=== PATIENT | male | born 1965 | race Hispanic/Latino ===

== ENCOUNTER 2023-03-05 09:32 | Emergency (ER) | payer MEDICARE ==
[~2023-03-05] VITALS: Ht 157.5 cm; Wt 66.7 kg
[2023-03-05] MEDS ORDERED: ASPIRIN 325MG TAB ONE (09:41)
[2023-03-05] MEDS ORDERED: NITROGLYCERIN 1GM OINT 1 INCH/1GM TD ONE ×2 (09:42→10:00)
[2023-03-05 09:48] LABS: BASOPHILS # (AUTO) 0.05 K/uL (0.00-0.20); BASOPHILS % (AUTO) 0.4 % (0.0-5.0); EOSINOPHILS # (AUTO) 0.03 K/uL (0.00-0.70); EOSINOPHILS % (AUTO) 0.3 % (0.0-8.0); HEMATOCRIT 37.3 % (42-54); IMMATURE GRANULOCYTE ABSOLUTE 0.05 K/uL (0-1); LYMPHOCYTES # (AUTO) 0.8 K/uL (1.0-4.8); LYMPHOCYTES % (AUTO) 7.1 % (21.0-51.0); MEAN CORPUSCULAR HEMOGLOBIN 32.6 pg (27.0-33.0); MEAN CORPUSCULAR HGB CONC 34.6 g/dL (32.0-36.0); MEAN CORPUSCULAR VOLUME 94.2 fL (79-99); MONOCYTES # (AUTO) 0.7 K/uL (0.1-1.0); MONOCYTES % (AUTO) 6.3 % (3.0-13.0); NEUTROPHILS % (AUTO) 85.5 % (40.0-77.0); PLATELET COUNT (AUTO) 301 K/uL (130-400); RED BLOOD CELL COUNT(AUTO) 3.96 MIL/uL (4.50-6.20); RED CELL DISTRIBUTION WIDTH 12.2 % (11.0-15.5); WHITE BLOOD COUNT (AUTO) 11.7 K/uL (4.8-10.8)
[2023-03-05] MEDS ORDERED: ASPIRIN 325MG TAB PO ONE (10:00)
[2023-03-05 10:03] LABS: CREATININE 3.7 mg/dL (0.5-1.5); POTASSIUM 3.3 mmol/L (3.5-5.1)
[2023-03-05 10:08] LABS: ALBUMIN 4.4 g/dL (3.5-5.0); BILIRUBIN,TOTAL 0.6 mg/dL (0.2-1.0); MAGNESIUM 2.2 mg/dL (1.80-2.40); TOTAL PROTEIN, SERUM 8.8 g/dL (6.0-8.3)
[2023-03-05] MEDS ORDERED: DIAZEPAM 2 MG TAB PO ONE (11:00)
[2023-03-05] MEDS ORDERED: MORPHINE 4 MG SYG IVP ONE (11:00)
[2023-03-05 14:39] VITALS: BP 160/70; PULSE 78; RESP 14; O2SAT 95
[2023-03-05] MEDS ORDERED: ACET-2079 PO (15:35)
== END 2023-03-05 15:55 | disposition home or self-care (01) ==
LOC: EDH 09:32
DX: M54.12 Radiculopathy, cervical region (principal); I12.0 Hypertensive chronic kidney disease with stage 5 chronic kidney disease or end stage renal disease; E11.22 Type 2 diabetes mellitus with diabetic chronic kidney disease; N18.6 End stage renal disease; E78.00 Pure hypercholesterolemia, unspecified; Z99.2 Dependence on renal dialysis
CPT/HCPCS: 99285; 96374; 72125; 71045; 83735; 84484 ×2; 80053; 83880; 85025; 85730; 36415; 93005; J2270

== ENCOUNTER 2023-05-29 08:42 | Emergency (ER) | payer MEDICARE ==
[~2023-05-29] VITALS: Ht 157.5 cm; Wt 64.9 kg
[~2023-05-29 08:42] MED LIST: ACET-2079 PO
[2023-05-29 08:54] VITALS: BP 180/80; PULSE 84; RESP 16; O2SAT 100
[2023-05-29 09:02] LABS: BASOPHILS # (AUTO) 0.12 K/uL (0.00-0.20); BASOPHILS % (AUTO) 1.5 % (0.0-5.0); EOSINOPHILS # (AUTO) 0.97 K/uL (0.00-0.70); HEMATOCRIT 39.8 % (42-54); IMMATURE GRANULOCYTE ABSOLUTE 0.02 K/uL (0-1); LYMPHOCYTES # (AUTO) 1.4 K/uL (1.0-4.8); LYMPHOCYTES % (AUTO) 16.9 % (21.0-51.0); MEAN CORPUSCULAR HEMOGLOBIN 31.1 pg (27.0-33.0); MEAN CORPUSCULAR HGB CONC 33.2 g/dL (32.0-36.0); MEAN CORPUSCULAR VOLUME 93.9 fL (79-99); MONOCYTES # (AUTO) 0.5 K/uL (0.1-1.0); MONOCYTES % (AUTO) 6.6 % (3.0-13.0); NEUTROPHILS # (AUTO) 5.1 K/uL (1.8-7.7); NEUTROPHILS % (AUTO) 62.8 % (40.0-77.0); PLATELET COUNT (AUTO) 235 K/uL (130-400); RED BLOOD CELL COUNT(AUTO) 4.24 MIL/uL (4.50-6.20); RED CELL DISTRIBUTION WIDTH 12.9 % (11.0-15.5); WHITE BLOOD COUNT (AUTO) 8.1 K/uL (4.8-10.8)
[2023-05-29] MEDS: METOCLOPRAMIDE 10 MG/2 ML VIAL IVP ONE (09:07)
[2023-05-29] MEDS: FAMOTIDINE 20MG VIAL IV ONE (09:07)
[2023-05-29 09:38] LABS: CREATININE 6.2 mg/dL (0.5-1.3)
[2023-05-29 09:42] LABS: ALBUMIN 4.2 g/dL (3.5-5.0); BILIRUBIN,TOTAL 0.4 mg/dL (0.2-1.0); TOTAL PROTEIN, SERUM 8.6 g/dL (6.0-8.3)
[2023-05-29] MEDS ORDERED: PANT40TA PO (09:57)
[2023-05-29] MEDS ORDERED: METO-296 PO (09:57)
== END 2023-05-29 10:02 | disposition home or self-care (01) ==
LOC: EDH 08:42
DX: K29.70 Gastritis, unspecified, without bleeding (principal); E11.9 Type 2 diabetes mellitus without complications; E78.00 Pure hypercholesterolemia, unspecified; I10 Essential (primary) hypertension
CPT/HCPCS: 99285; 96374; 96375; 84484; 80053; 83690; 85025; 36415; 74018; 93005; J3490; J2765

== ENCOUNTER → 2023-12-01 | Outpatient (CLI) | payer MEDICARE ==
[~2023-12-01] MED LIST changes: +METO-296 PO; +PANT40TA PO
== END | disposition home or self-care (01) ==
LOC: SHCH 09:17
PROVIDERS: ATTEND Student in an Organized Health Care Education/Training Program
DX: I48.91 Unspecified atrial fibrillation (principal)
CPT/HCPCS: 93306

== ENCOUNTER → 2024-01-26 | Outpatient (CLI) | payer MEDICARE ==
[2024-01-26 12:19] LABS: BILIRUBIN,TOTAL 0.7 mg/dL (0.2-1.0); CREATININE 4.4 mg/dL (0.5-1.3); POTASSIUM 4.5 mmol/L (3.5-5.1); TOTAL PROTEIN, SERUM 8.1 g/dL (6.0-8.3)
== END | disposition home or self-care (01) ==
LOC: LAB 08:55
PROVIDERS: ATTEND Student in an Organized Health Care Education/Training Program
DX: I48.91 Unspecified atrial fibrillation (principal)
CPT/HCPCS: 36415; 80053

== ENCOUNTER → 2024-03-04 | Outpatient (CLI) | payer MEDICARE ==
[2024-03-04] MEDS: REGADENOSON 0.4 MG/5 ML PF SYG IVP ONE (15:59)
--- NOTE | 2024-03-08 11:59 | HMCSR ---
APPROVED REPORT Height: 5 ft 2in Weight: 143 lbs TEST INDICATIONS Atrial Fibrillation The imaging protocol used to acquire images was Rest Tc-99m/stress Tc-99m 1 day Consent: The procedure was explained and understood by the patient. Informerd consent was witnessed Michelle García RN First, low dose rest was performed then high dose stress. RESTING DATA: The resting ekg shows: NSR Rest SPECT myocardial perfusion imaging was performed in supine position 77 minutes following the int ravenous injection of 13.4 mCi of Tc-99 Sestamibi. Time of rest injection: 08:22: Date: 03/04/2024 Time of rest imagin:39: Date: 03/04/2024 PHARMACOLOGIC STRESS: Pharmacologic stress test was performed by injecting regadenoson 0.4 mg IV push followed by the intra venous injection of 31.3 mCi of Tc-99 Sestamibi. Time of stress injection: 10:15: Date: 03/04/2024 Time of stress imagin:11: Date: 03/04/2024 Heart Rate at time of stress injection: 75 bpm. Gated Stress SPECT was performed 116 minutes after stress injection. The images were gated to evaluate regional wall motion and calculate left ventricular ejection fracti on. STRESS DETAILS Reason for Termination: Infusion complete Stress Symptoms: No chest pain or symptoms Max HR Achieved: 77 bpm % of APMHR Achieved: 48 Max Blood Pressure: 158/79 mmHg Stress ECG: NSR Study quality was good. Lung uptake was Normal. Artifact: No artifact IMPRESSION Normal pharmacologic nuclear stress test. Conclusion Normal perfusion. LVEF 53%.
== END | disposition home or self-care (01) ==
LOC: SHCH 08:02
PROVIDERS: ATTEND Student in an Organized Health Care Education/Training Program
DX: I48.91 Unspecified atrial fibrillation (principal); I11.0 Hypertensive heart disease with heart failure; I50.22 Chronic systolic (congestive) heart failure
CPT/HCPCS: 78452; 93017; J2785; A9500 ×2

== ENCOUNTER 2024-03-13 08:57 | Emergency (ER) | payer MEDICARE ==
[~2024-03-13] VITALS: Ht 157.5 cm; Wt 67.6 kg
[2024-03-13 09:43] LABS: BASOPHILS # (AUTO) 0.12 K/uL (0.00-0.20); BASOPHILS % (AUTO) 2.1 % (0.0-5.0); EOSINOPHILS # (AUTO) 0.41 K/uL (0.00-0.70); HEMATOCRIT 36.3 % (42-54); IMMATURE GRANULOCYTE ABSOLUTE 0.01 K/uL (0-1); LYMPHOCYTES # (AUTO) 0.6 K/uL (1.0-4.8); MEAN CORPUSCULAR HEMOGLOBIN 32.5 pg (27.0-33.0); MEAN CORPUSCULAR HGB CONC 33.3 g/dL (32.0-36.0); MEAN CORPUSCULAR VOLUME 97.6 fL (79-99); MONOCYTES # (AUTO) 0.4 K/uL (0.1-1.0); MONOCYTES % (AUTO) 6.9 % (3.0-13.0); NEUTROPHILS # (AUTO) 4.2 K/uL (1.8-7.7); NEUTROPHILS % (AUTO) 72.8 % (40.0-77.0); PLATELET COUNT (AUTO) 181 K/uL (130-400); RED BLOOD CELL COUNT(AUTO) 3.72 MIL/uL (4.50-6.20); RED CELL DISTRIBUTION WIDTH 12.4 % (11.0-15.5); WHITE BLOOD COUNT (AUTO) 5.8 K/uL (4.8-10.8)
[2024-03-13 09:50] LABS: CREATININE 6.1 mg/dL (0.5-1.3); POTASSIUM 4.7 mmol/L (3.5-5.1)
[2024-03-13 09:55] LABS: ALBUMIN 3.5 g/dL (3.5-5.0); BILIRUBIN,DIRECT 0.1 mg/dL (0.0-0.3); BILIRUBIN,TOTAL 0.4 mg/dL (0.2-1.0); TOTAL PROTEIN, SERUM 7.6 g/dL (6.0-8.3)
--- NOTE | 2024-03-13 10:44 | ERN ---
ED Note History of Present Illness Stated Complaint: BLOODY STOOLS, HEMATURIA, HEMMORHOIDS Chief Complaint: Bloody Stool Time Seen by MD: 09:00 Dictation: 58-year-old male with a history of ESRD on hemodialysis and hemorrhoids presents to the ED for evaluation of two episodes of bloody stool onset one week ago. Patient reports hematuria and abdominal pain, but denies any other associated symptoms at this time. Patient mentioned that these past two episodes of bright bloody stool were accompanied by abdominal pain. Allergies: Coded Allergies: No Known Drug Allergies (Unverified Allergy, Unknown, 03/05/23) Home Meds Active Scripts Metoclopramide HCl (Reglan) 10 Mg Tablet, 10 MG PO QIDP PRN for NAUSEA, #30 TAB 2 Refills Prov:JAMIL VILLALBA Sr., MD 05/29/23 Pantoprazole Sodium (Protonix) 40 Mg Tablet.dr, 40 MG PO DAILY, #30 TAB 2 Ref ills Prov:JAMIL VILLALBA Sr., MD 05/29/23 Acetaminophen with Codeine (Acetaminophen-Cod #3 Tablet) 300 Mg-30 Mg Tablet, 1 TAB PO Q6H PRN for PAIN, #10 TAB 0 Refills Prov:EVA MANSFIELD MD 03/05/23 Past Medical History Past Medical History: Diabetes-Type II, High Cholesterol, Hypertension, Renal Failure Additional Past Medical Hx: STOMACH ULCERS Surgical History: LAVA Social History: Negative Review of System Dictation Constitutional: Negative for fever,chills, and weight loss Eyes: Negative for injury, pain,redness, and discharge ENT: Negative for injury,pain or swelling Cardiovascular: Negative for chest pain, palpitations, and edema Respiratory: Negative for shortness of breath, cough, and wheezing, Abdomen/GI: Positive for abdominal pain, bloody stools negative for nausea, vomiting, diarrhea, and constipation Back: Negative for injury and pain : Positive for hematuria Negative for injury and discharge MS/Extremity: Negative for injury and deformity Skin: Negative for rash, and discoloration Neuro: Negative for headache, weakness, numbness, tingling, and seizure Psych: Negative for suicide ideation, homicidal ideation, and hallucinations Initial Vital Sign VS Vital Signs Date Time Temp Pulse Resp B/P (MAP) Pulse Ox O2 Delivery O2 Flow Rate FiO2 03/13/24 08:59 97.9 83 16 182/75 99 Room Air 0 03/13/24 09:03 21 Physical Exam Dictation General: awake, alert, NAD Head/Face: Normocephalic, atraumatic Eyes: PERRL, EOMI, vision at baseline ENT: oral cavity clear, TMs clear, no signs of infection Neck: Trachea midline, supple, no nuchal rigidity Cardiovascular: RRR, normal S1/S2, No MRGs, no JVD Respiratory: CTAB, no respiratory distress, No rales or wheezes Abdomen: Soft, non-tender, non-distended, normal bowel sounds, no guarding or rebound. Skin: Warm, dry, normal turgor, no rash MS/Extremity: Pulses equal, no cyanosis, neurovascular intact, FROM Neuro: COAx4, GCS 15, strength 5/5, CN 2-12 intact, normal cerebellar exam, normal gait, Psych: Normal behavior, mood, and affect normal Results (Laboratory/Radiology) Laboratory/Radiology Laboratory Tests Test 03/13/24 09:36 White Blood Count 5.8 K/uL (4.8-10.8) Red Blood Count 3.72 MIL/uL (4.50-6.20) L Hemoglobin 12.1 g/dL (14.0-18.0) L Hematocrit 36.3 % (42-54) L Mean Corpuscular Volume 97.6 fL (79-99) Mean Corpuscular Hemoglobin 32.5 pg (27.0-33.0) Mean Corpuscular Hemoglobin Concent 33.3 g/dL (32.0-36.0) Red Cell Distribution Width 12.4 % (11.0-15.5) Platelet Count 181 K/uL (130-400) Mean Platelet Volume 9.6 fL (7.5-10.5) Immature Granulocyte % (Auto) 0.2 % (0-1) Neutrophils (%) (Auto) 72.8 % (40.0-77.0) Lymphocytes (%) (Auto) 11.0 % (21.0-51.0) L Monocytes (%) (Auto) 6.9 % (3.0-13.0) Eosinophils (%) (Auto) 7.0 % (0.0-8.0) Basophils (%) (Auto) 2.1 % (0.0-5.0) Neutrophils # (Auto) 4.2 K/uL (1.8-7.7) Lymphocytes # (Auto) 0.6 K/uL (1.0-4.8) L Monocytes # (Auto) 0.4 K/uL (0.1-1.0) Eosinophils # (Auto) 0.41 K/uL (0.00-0.70) Basophils # (Auto) 0.12 K/uL (0.00-0.20) Absolute Immature Granulocyte (auto 0.01 K/uL (0-1) Nucleated Red Blood Cells 0.0 % (0.0-0.19) Sodium Level 139 mmol/L (136-145) Potassium Level 4.7 mmol/L (3.5-5.1) Chloride Level 102 mmol/L (101-111) Carbon Dioxide Level 31 mmol/L (21-32) Blood Urea Nitrogen 26 mg/dL (7-18) H Creatinine 6.1 mg/dL (0.5-1.3) H Glomerular Filtration Rate Calc 10 mL/min (>90) Random Glucose 139 mg/dL (70-105) H Total Calcium 8.7 mg/dL (8.5-10.1) Total Bilirubin 0.4 mg/dL (0.2-1.0) Direct Bilirubin 0.1 mg/dL (0.0-0.3) Aspartate Amino Transf (AST/SGOT) 13 U/L (10-37) Alanine Aminotransferase (ALT/SGPT) 14 U/L (12-78) Alkaline Phosphatase 75 U/L (50-136) Total Protein 7.6 g/dL (6.0-8.3) Albumin 3.5 g/dL (3.5-5.0) Labs Reviewed?: Yes ED Course ED Course Orders Procedure Category Date Status Time Basic Metabolic Panel LAB 03/13/24 Complete : Cbc With Differential LAB 03/13/24 Complete Hepatic Function Panel LAB 03/13/24 Complete Urinalysis Profile LAB 03/13/24 Logged : Vital Signs Date Time Temp Pulse Resp B/P (MAP) Pulse Ox O2 Delivery O2 Flow Rate FiO2 03/13/24 11:00 97.9 76 20 151/72 98 Room Air* 0 21 03/13/24 09:03 97.9 83 16 182/75 99 Room Air* 0 21 03/13/24 08:59 97.9 83 16 182/75 99 Room Air 0 Medical Decision Making MDM MDM: Differential diagnosis: GI bleed, ESRD Rationale: Tests considered and ordered secondary to shared decision making include: Risk of complication and/or morbidity or mortality of patient management: None Medications-Per medication reconciliation Need for hospitalization: Patient does not meet criteria for hospitalization. Need for emergency major/minor surgery: No There are no social concerns with this patient. I independently interpreted the test that were performed, results were reviewed by me and considered findings on radiology if ordered. DX & DISP Disposition: Discharge Departure Impression: Primary Impression: Stable lower GI bleed Additional Impression: End stage renal disease Condition: Stable Referrals: LOVE CHURCHILL MD (PCP) NEIDA CONTI MD Mar 13, 2024 10:44
[2024-03-13 11:00] VITALS: BP 151/72; PULSE 76; RESP 20; TEMP 97.8; O2SAT 98
== END 2024-03-13 11:42 | disposition home or self-care (01) ==
LOC: EDH 08:57
DX: K92.2 Gastrointestinal hemorrhage, unspecified (principal); I12.0 Hypertensive chronic kidney disease with stage 5 chronic kidney disease or end stage renal disease; E11.22 Type 2 diabetes mellitus with diabetic chronic kidney disease; N18.6 End stage renal disease; E78.00 Pure hypercholesterolemia, unspecified; Z99.2 Dependence on renal dialysis; Z79.899 Other long term (current) drug therapy; Z87.11 Personal history of peptic ulcer disease
CPT/HCPCS: 36415; 80048; 80076; 85025; 99283

== ENCOUNTER 2024-08-23 10:19 | Emergency (ER) | payer MEDICARE ==
[~2024-08-23] VITALS: Ht 157.5 cm; Wt 73.5 kg
[2024-08-23 11:06] LABS: CREATININE 5.1 mg/dL (0.5-1.3); GLOMERULAR FILTR. RATE CALC 12.0 mL/min (>90); GLUCOSE,RANDOM 309.0 mg/dL (70-105); IMMATURE GRANULOCYTE ABSOLUTE 0.03 K/uL (0-1); NUCLEATED RED BLOOD CELLS 0.0 % (0.0-0.19); PLATELET COUNT (AUTO) 228 K/uL (130-400); RED BLOOD CELL COUNT(AUTO) 3.33 MIL/uL (4.50-6.20); RED CELL DISTRIBUTION WIDTH 12.1 % (11.0-15.5); SODIUM SERUM 136.0 mmol/L (136-145); UREA NITROGEN, BLOOD 31.0 mg/dL (7-18); WHITE BLOOD COUNT (AUTO) 7.8 K/uL (4.8-10.8)
[2024-08-23 11:19] LABS: SARS-CoV-2, RNA, NAAT NEGATIVE SARS CoV-2 (NEGATIVE)
[2024-08-23 11:26] LABS: INFLUENZA TYPE A Negative For Type A (NEGATIVE); INFLUENZA TYPE B Negative For Type B (NEGATIVE)
[2024-08-23 11:30] VITALS: TEMP 98.6
--- NOTE | 2024-08-23 12:23 | HMCIMG ---
EXAM: CR Chest, 1 View. CLINICAL HISTORY: Cough COMPARISON: None provided. FINDINGS: LUNGS: There is no mass, infiltrate, or acute pulmonary abnormality. PLEURAL SPACES: No pleural effusion or pneumothorax. MEDIASTINUM: Cardiac size and mediastinal contours within normal limits. BONES: No acute osseous abnormality. IMPRESSION: No acute cardiopulmonary pathology is evident. /[place]
[2024-08-23] MEDS ORDERED: METH4TAB3 PO (12:57)
[2024-08-23] MEDS ORDERED: AZIT250T9 PO (12:57)
--- NOTE | 2024-08-23 12:57 | ERN ---
General Chief Complaint: Cough Stated Complaint: COUGH Time Seen by MD: 10:45 Time Seen by Midlevel: 10:45 Source: patient History of Present Illness Initial Comments The patient is a pleasant 59-year-old male with a past medical history of end- stage renal disease on hemodialysis presenting to the emergency department for evaluation of cough and congestion that has been ongoing for multiple days. Patient states his cough worsens when he lies flat. He was on a Thursday, , Thursday dialysis schedule and reports having dialysis done earlier today with no complications. He decided to report to the ER after his continued cough continued to bother him. He denies any other symptoms. Allergies: Coded Allergies: No Known Drug Allergies (Unverified Allergy, Unknown, 03/05/23) Home Meds Active Scripts Metoclopramide HCl (Reglan) 10 Mg Tablet, 10 MG PO QIDP PRN for NAUSEA, #30 TAB 2 Refills Prov:JAMIL VILLALBA Sr., MD 05/29/23 Pantoprazole Sodium (Protonix) 40 Mg Tablet.dr, 40 MG PO DAILY, #30 TAB 2 Refills Prov:JAMIL VILLALBA Sr., MD 05/29/23 Acetaminophen with Codeine (Acetaminophen-Cod #3 Tablet) 300 Mg-30 Mg Tablet, 1 TAB PO Q6H PRN for PAIN, #10 TAB 0 Refills Prov:EVA MANSFIELD MD 03/05/23 Past Medical History Past Medical History: Diabetes-Type II, High Cholesterol, Hypertension, Renal Disese, Renal Failure Medical History Other: STOMACH ULCERS Past Surgical History: LAVA Social History Social History: Negative ROS Dictation CONSTITUTIONAL: Negative except for HPI HEAD/FACE: Negative except for HPI EENT: Negative except for HPI RESPIRATORY: Negative except for HPI GASTROINTESTINAL/ABDOMINAL: Negative except for HPI GENITOURINARY: Negative except for HPI MUSCULOSKELETAL: Negative except for HPI INTEGUMENTARY: Negative except for HPI NEUROLOGICAL/PSYCH: Negative except for HPI HEMATOLOGIC/LYMPHATIC: Negative except for HPI All Systems Negative, Except as noted above. 13 point review of systems assessed and all negative except for above. Physical Exam Physical Exam Dictation PHYSICAL EXAM: GENERAL: alert,, awake oriented x 3 HEENT: EOMI, Sclera non icteric, moist mucosa NECK: Supple, no JVD, trachea midline LUNGS: Clear breath sounds bilaterally. No wheezes HEART: Regular rate and rhythm. Normal S1 and S2, without murmurs ABD: Abdomen soft, nontender. Bowel sounds present EXT: No clubbing or cyanosis, NEURO: Alert and oriented to person, follows commands Results Laboratory and Microbiology Lab and Micro Result Laboratory Tests Test 08/23/24 10:53 08/23/24 10:56 White Blood Count 7.8 K/uL (4.8-10.8) Red Blood Count 3.33 MIL/uL (4.50-6.20) L Hemoglobin 10.8 g/dL (14.0-18.0) L Hematocrit 31.0 % (42-54) L Mean Corpuscular Volume 93.1 fL (79-99) Mean Corpuscular Hemoglobin 32.4 pg (27.0-33.0) Mean Corpuscular Hemoglobin Concent 34.8 g/dL (32.0-36.0) Red Cell Distribution Width 12.1 % (11.0-15.5) Platelet Count 228 K/uL (130-400) Mean Platelet Volume 9.8 fL (7.5-10.5) Immature Granulocyte % (Auto) 0.4 % (0-1) Neutrophils (%) (Auto) 84.3 % (40.0-77.0) H Lymphocytes (%) (Auto) 6.0 % (21.0-51.0) L Monocytes (%) (Auto) 8.8 % (3.0-13.0) Eosinophils (%) (Auto) 0.0 % (0.0-8.0) Basophils (%) (Auto) 0.5 % (0.0-5.0) Neutrophils # (Auto) 6.6 K/uL (1.8-7.7) Lymphocytes # (Auto) 0.5 K/uL (1.0-4.8) L Monocytes # (Auto) 0.7 K/uL (0.1-1.0) Eosinophils # (Auto) 0.00 K/uL (0.00-0.70) Basophils # (Auto) 0.04 K/uL (0.00-0.20) Absolute Immature Granulocyte (auto 0.03 K/uL (0-1) Nucleated Red Blood Cells 0.0 % (0.0-0.19) White Cell Morphology Comment See comments Sodium Level 136 mmol/L (136-145) Potassium Level 4.6 mmol/L (3.5-5.1) Chloride Level 96 mmol/L (101-111) L Carbon Dioxide Level 32 mmol/L (21-32) Blood Urea Nitrogen 31 mg/dL (7-18) H Creatinine 5.1 mg/dL (0.5-1.3) H Glomerular Filtration Rate Calc 12 mL/min (>90) Random Glucose 309 mg/dL (70-105) H Total Calcium 9.0 mg/dL (8.5-10.1) Influenza Type A Antigen Negative For Type A Influenza Type B Antigen Negative For Type B SARS-CoV-2, RNA, NAAT NEGATIVE SARS CoV-2 Labs Reviewed?: Yes MDM MDM: Differential diagnosis: Pneumonia, acute bronchitis, pneumonitis There are no social concerns with this patient. Prescription drug management Prescriptions will include: Azithromycin and Medrol pack Medical management and examination interpretation discussions were had by me with other qualified healthcare professionals as indicated for the patient's care. ED Course Orders Procedure Category Date Status Time 12 Lead Ekg Tracing- EKG 08/23/24 Logged Technical 10:41 Cbc With Differential LAB 08/23/24 Complete 10:41 Basic Metabolic Panel LAB 08/23/24 Complete 10:41 Covid Rna Naat LAB 08/23/24 Complete 10:41 Influenza Type A & B, LAB 08/23/24 Complete Rapid 10:41 Chest 1vw RAD 08/23/24 Resulted 10:41 Vital Signs Date Time Temp Pulse Resp B/P (MAP) Pulse Ox O2 Delivery O2 Flow Rate FiO2 08/23/24 10:28 98.6 85 20 165/82 99 Room Air* 0 21 08/23/24 10:20 98.2 88 16 162/82 99 Room Air 0 DX & DISP Disposition: Discharge Departure Impression: Primary Impression: Acute bronchitis Condition: Stable Scripts Methylprednisolone (Medrol) 4 Mg Tab.ds.pk 1 TAB PO AD for 6 Days, #21 TAB 0 Refills 6 on day 1 then reduce by one tablet daily until gone Prov: BIBIANA KOENIG 08/23/24 Azithromycin (Azithromycin) 250 Mg Tablet 1 TAB PO AD for 5 Days, #6 TAB 0 Refills 2 the first day followed by 1 for days 2-5 Prov: BIBIANA KOENIG 08/23/24 Additional Instructions: Your blood work today is stable. Your chest x-ray is consistent with acute bronchitis. No evidence of pneumonia at this time. However, I have started you on azithromycin and Medrol pack for the next couple of days. Please follow up with your primary care doctor in 2-3 days for repeat evaluation Referrals: SHANNAN DORANTES (PCP) Time of Disposition: 12:56 I have reviewed the case, and I agree with, Diagnosis and Plan I performed the substantive portion of the visit. I have reviewed and personally made and approve the management plan that is documented in the note by myself or the LINDA. I acknowledge for responsibility for the patient's management plan. BIBIANA KOENIG Aug 23, 2024 12:57
[2024-08-23 13:16] VITALS: BP 154/89; PULSE 81; RESP 19; O2SAT 99
--- NOTE | 2024-08-23 13:32 | EKG ---
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
== END 2024-08-23 13:30 | disposition home or self-care (01) ==
LOC: EDH 10:19
DX: J20.9 Acute bronchitis, unspecified (principal); I12.0 Hypertensive chronic kidney disease with stage 5 chronic kidney disease or end stage renal disease; E11.22 Type 2 diabetes mellitus with diabetic chronic kidney disease; N18.6 End stage renal disease; Z99.2 Dependence on renal dialysis; E78.00 Pure hypercholesterolemia, unspecified; Z79.899 Other long term (current) drug therapy; Z87.11 Personal history of peptic ulcer disease; Z20.822 Contact with and (suspected) exposure to COVID-19
CPT/HCPCS: 36415; 71045; 80048; 85025; 87635; 87804; 93005; 99285

== ENCOUNTER 2024-09-01 10:05 | Emergency (ER) | payer MEDICARE ==
[~2024-09-01] VITALS: Ht 157.5 cm; Wt 68.0 kg
[~2024-09-01 10:05] MED LIST changes: +AZIT250T9 PO; +METH4TAB3 PO
--- NOTE | 2024-09-01 10:37 | ERN ---
ED Note History of Present Illness Stated Complaint: fall Chief Complaint: Generalized Body Aches Time Seen by MD: 10:18 Time Seen by Midlevel: 10:20 Dictation: 67 y/o male with history of HTN, DM, ESRD, on HD , TTS. Last HD today. Pt coming in for evaluation of a ground level fall that happened 08/26/2024. Patient states he was walking with a lamp , tripped and fell. - LOC, pt is taking eliquis. C/o right rib pain, right knee pain, and right ankle pain. Allergies: Coded Allergies: No Known Drug Allergies (Unverified Allergy, Unknown, 03/05/23) Home Meds Active Scripts Methylprednisolone (Medrol) 4 Mg Tab.ds.pk, 1 TAB PO AD for 6 Days, #21 TAB 0 Refills 6 on day 1 then reduce by one tablet daily until gone Prov:BIBIANA KOENIG 08/23/24 Azithromycin (Azithromycin) 250 Mg Tablet, 1 TAB PO AD for 5 Days, #6 TAB 0 Refills 2 the first day followed by 1 for days 2-5 Prov:BIBIANA KOENIG 08/23/24 Metoclopramide HCl (Reglan) 10 Mg Tablet, 10 MG PO QIDP PRN for NAUSEA, #30 TAB 2 Refills Prov:JAMIL VILLALBA Sr., MD 05/29/23 Pantoprazole Sodium (Protonix) 40 Mg Tablet.dr, 40 MG PO DAILY, #30 TAB 2 Refills Prov:JAMIL VILLALBA Sr., MD 05/29/23 Acetaminophen with Codeine (Acetaminophen-Cod #3 Tablet) 300 Mg-30 Mg Tablet, 1 TAB PO Q6H PRN for PAIN, #10 TAB 0 Refills Prov:EVA MANSFIELD MD 03/05/23 Past Medical History Past Medical History: Diabetes-Type II, Hypertension, Renal Failure Additional Past Medical Hx: STOMACH ULCERS Surgical History: None Social History: Negative Review of System Dictation Constitutional: Negative for fever,chills, and weight loss Eyes: Negative for injury, pain,redness, and discharge ENT: Negative for injury,pain or swelling Cardiovascular: Negative for chest pain, palpitations, and edema Respiratory: Negative for shortness of breath, cough, and wheezing, Abdomen/GI: Negative for abdominal pain, nausea, vomiting, diarrhea, and constipation Back: Negative for injury and pain : Negative for injury, bleeding and discharge MS/Extremity: Negative for injury and deformity, complaining of right knee, right ankle and right rib pain Skin: Negative for rash, and discoloration Neuro: Negative for headache, weakness, numbness, tingling, and seizure Psych: Negative for suicide ideation, homicidal ideation, and hallucinations Review of Systems: was completed Initial Vital Sign VS Vital Signs Date Time Temp Pulse Resp B/P (MAP) Pulse Ox O2 Delivery O2 Flow Rate FiO2 09/01/24 10:05 97.9 80 20 175/91 99 Room Air 0 09/01/24 10:21 21 Physical Exam Dictation General: awake, alert, NAD Head/Face: Normocephalic, atraumatic Eyes: PERRL, EOMI, vision at baseline ENT: oral cavity clear, TMs clear, no signs of infection Neck: Trachea midline, supple, no nuchal rigidity Cardiovascular: RRR, normal S1/S2, No MRGs, no JVD, no ecchymosis noted on the chest area Respiratory: CTAB, no respiratory distress, No rales or wheezes Abdomen: Soft, non-tender, non-distended, normal bowel sounds, no guarding or rebound. Skin: Warm, dry, normal turgor, no rash MS/Extremity: Pulses equal, no cyanosis, neurovascular intact, FROM, ecchymosis and different stages of healing noted to the right knee and ankle. Neuro: COAx4, GCS 15, strength 5/5, CN 2-12 intact, normal cerebellar exam, normal gait, Psych: Normal behavior, mood, and affect normal Results (Laboratory/Radiology) X-RAY Comment: [place] [address] IMAGING REPORT Signed PATIENT: Dinh SANDERSON MR#: [id number] : 1965 SEX: M AGE: 59 LOCATION: [facility] ORDER STATUS: REG ER REPORT#: [id number] SERVICE [id number] REASON: fall ORDERING PHYSICIAN: DARA FOSTER NP PROCEDURE: RIB RT W C - RIBS UNI RT W PA CHEST 3+ VWS EXAM: CR right Rib, 5 View. CLINICAL HISTORY: fall COMPARISON: Radiograph dated August 23, 2024 FINDINGS: LUNGS: The visualized lungs appear essentially clear. PLEURAL SPACES: No evidence of pneumothorax. No pleural effusion. BONES: Question a nondisplaced fracture of the anterior aspect of the right seventh rib. Recommend CT imaging for further evaluation. IMPRESSION: 1. Possible nondisplaced fracture of the anterior right seventh rib. CT recommended for further evaluation. /[place] DICTATED BY: MARQUIS PERSON Jr., MD DATE: 09/01/241240 ELECTRONICALLY SIGNED BY: MARQUIS PERSON Jr., MD DATE: 09/01/241240 [place] [address] IMAGING REPORT Signed PATIENT: Dinh SANDERSON MR#: [id number] : 1965 SEX: M AGE: 59 LOCATION: [facility] ORDER 26 STATUS: [facility] REPORT#: [id number] SERVICE 102 REASON: fall ORDERING PHYSICIAN: DARA FOSTER NP PROCEDURE: [id number] - ANKLE 2VWS RT EXAM: CR right ankle, 2 View. CLINICAL HISTORY: fall COMPARISON: None provided. FINDINGS: BONES: No acute fracture or aggressive appearing osseous lesion. JOINTS: The joint spaces appear within normal limits. No dislocation. No radiographic evidence of a joint effusion. SOFT TISSUES: Soft tissue swelling about the ankle (more pronounced laterally). Atherosclerotic vascular calcifications are noted. IMPRESSION: 1. No acute osseous injury. 2. Soft tissue swelling about the ankle, more pronounced laterally. /[place] DICTATED BY: MARQUIS PERSON Jr., MD DATE: 09/01/241243 ELECTRONICALLY SIGNED BY: MARQUIS PERSON Jr., MD DATE: 09/01/241243 ED Course ED Course Orders Procedure Category Date Status Time Ribs Uni Rt W Pa RAD 09/01/24 Resulted Chest 3+ Vws 10:26 Knee 3vws Rt RAD 09/01/24 Resulted 10:26 Ankle 2vws Rt RAD 09/01/24 Resulted 10:26 *Nursing CPOE 09/01/24 Verified Communication: 12:10 Vital Signs Date Time Temp Pulse Resp B/P (MAP) Pulse Ox O2 Delivery O2 Flow Rate FiO2 09/01/24 10:21 97.9 77 18 173/103 100 Room Air* 0 21 09/01/24 10:05 97.9 80 20 175/91 99 Room Air 0 Medical Decision Making MDM MDM: 67 y/o male with history of HTN, DM, ESRD, on HD , TTS. Last HD today. Pt coming in for evaluation of a ground level fall that happened 08/26/2024. Patient states he was walking with a lamp , tripped and fell. - LOC, pt is taking eliquis. C/o right rib pain, right knee pain, and right ankle pain. X-ray of the knee shows moderate suprapatellar knee joint effusion possibly reflecting internal derangement, severe prepatellar and infrapatellar bursitis. No displaced fracture. Ankle x-ray shows no acute findings just soft tissue swelling. In rib series x-ray shows a possible nondisplaced 7th anterior rib fracture. No pneumothorax no pleural effusions. Patient has mild tenderness on palpation to the chest area however there is no obvious signs of trauma, patient is breathing symmetrically, no hypoxia, no tachypnea. Patient states his pain has not improved from the fall toe today but just wanted to be evaluated. Discussed findings with the patient. Educated to return to his PCP for follow up in 1-2 days and return to the hospital if any changes. Patient verbalized understanding, answered all questions. Differential diagnosis: Knee fracture, knee dislocation, ankle fracture, rib fracture, pneumo Rationale: Tests considered and ordered secondary to shared decision making include: Previous outside records reviewed: Old ER visits. Risk of complication and/or morbidity or mortality of patient management: None Medications-Per medication reconciliation Need for hospitalization: Patient does not meet criteria for hospitalization. Need for emergency major/minor surgery: No There are no social concerns with this patient. Prescription drug management Prescriptions will include symptomatic care Patient's prior external medical records from other ER visits were reviewed by me as indicated. Prior testing and results from previous visits were reviewed. Prior tests were taken into account with medical decision making and resource utilization, independent historian/historians were used to obtain complete medical history. I independently interpreted the test that were performed, results were reviewed by me and considered findings on radiology if ordered. Medical management and examination interpretation discussions were had by me with other qualified healthcare professionals as indicated for the patient's care. DX & DISP Disposition: Discharge Departure Impression: Primary Impression: Rib fracture Additional Impression: Knee bursitis Condition: Stable Additional Instructions: tiene que seguir con clark doctor familiar, y ir con un especialista de los huesos. Dr. Benavidez. Respire normal, si tiene mucho dolor o dificultad a respirar regre se a la emergencia. Referrals: SHANNAN DORANTES (PCP) PAOLA BENAVIDEZ MD Time of Disposition: 12:19 I have reviewed the case, and I agree with, Diagnosis and Plan DARA FOSTER NP Sep 01, 2024 10:37
--- NOTE | 2024-09-01 11:42 | HMCIMG ---
EXAM: CR right Rib, 5 View. CLINICAL HISTORY: fall COMPARISON: Radiograph dated August 23, 2024 FINDINGS: LUNGS: The visualized lungs appear essentially clear. PLEURAL SPACES: No evidence of pneumothorax. No pleural effusion. BONES: Question a nondisplaced fracture of the anterior aspect of the right seventh rib. Recommend CT imaging for further evaluation. IMPRESSION: 1. Possible nondisplaced fracture of the anterior right seventh rib. CT recommended for further evaluation. /[place]
--- NOTE | 2024-09-01 11:43 | HMCIMG ---
EXAM: CR right Knee, 3 View. CLINICAL HISTORY: fall COMPARISON: None provided. FINDINGS: Lateral compartment predominant mild to moderate tricompartmental right knee joint osteoarthritis. Moderate suprapatellar knee joint effusion may reflect internal derangement. Severe prepatellar and infrapatellar bursitis. Atherosclerotic vascular calcifications are noted. No displaced fracture appreciated. IMPRESSION: 1. Moderate suprapatellar knee joint effusion, possibly reflecting internal derangement. 2. Severe prepatellar and infrapatellar bursitis. 3. No displaced fracture appreciated. /[place]
--- NOTE | 2024-09-01 11:44 | HMCIMG ---
EXAM: CR right ankle, 2 View. CLINICAL HISTORY: fall COMPARISON: None provided. FINDINGS: BONES: No acute fracture or aggressive appearing osseous lesion. JOINTS: The joint spaces appear within normal limits. No dislocation. No radiographic evidence of a joint effusion. SOFT TISSUES: Soft tissue swelling about the ankle (more pronounced laterally). Atherosclerotic vascular calcifications are noted. IMPRESSION: 1. No acute osseous injury. 2. Soft tissue swelling about the ankle, more pronounced laterally. /[place]
[2024-09-01 12:21] VITALS: BP 152/88; PULSE 75; RESP 18; TEMP 97.9; O2SAT 99
== END 2024-09-01 12:25 | disposition home or self-care (01) ==
LOC: EDH 10:05
DX: S22.31XA Fracture of one rib, right side, initial encounter for closed fracture (principal); M70.51 Other bursitis of knee, right knee; E11.9 Type 2 diabetes mellitus without complications; I10 Essential (primary) hypertension; Z79.899 Other long term (current) drug therapy; W01.0XXA Fall on same level from slipping, tripping and stumbling without subsequent striking against object, initial encounter; Y93.89 Activity, other specified; Y92.89 Other specified places as the place of occurrence of the external cause; Y99.8 Other external cause status
CPT/HCPCS: 71101; 73562; 73600; 99284